=== PATIENT | male | born 1990 | race Caucasian/White ===

== ENCOUNTER 2017-05-04 18:15 | Emergency (ER) | payer BC, OTHER ==
[~2017-05-04] VITALS: Ht 177.8 cm; Wt 65.0 kg
[~2017-05-04 18:15] MED LIST: FISH300C2 PO; PRO AIR HFA INH; ZITH250T PO
[2017-05-04 19:08] VITALS: BP 120/80; PULSE 91; RESP 18; TEMP 98.1; O2SAT 99
[2017-05-04 21:05] LABS: AUTOMATED NEUTROPHIL # 7.3 TH/MM3 (1.8-7.7); BASOPHIL # 0.1 TH/MM3 (0-0.2); BASOPHIL % 0.7 % (0.0-2.0); EOSINOPHIL # 0.1 TH/MM3 (0-0.4); EOSINOPHIL % 1.1 % (0.0-4.0); HEMATOCRIT 42.4 % (39.0-51.0); HEMO FLAGS DIFF FINAL; LYMPH % 18.5 % (9.0-44.0); LYMPHOCYTE # 1.9 TH/MM3 (1.0-4.8); MEAN CELL VOLUME 96.2 FL (80.0-100.0); MEAN CORPUSCULAR HEMOGLOBIN 32.3 PG (27.0-34.0); MEAN CORPUSCULAR HGB CONC 33.5 % (32.0-36.0); MONO % 8.3 % (0.0-8.0); NEUT % 71.4 % (16.0-70.0); PLATELET COUNT 297 TH/MM3 (150-450); RED CELL DISTRIBUTION WIDTH 13.2 % (11.6-17.2); WHITE BLOOD COUNT 10.3 TH/MM3 (4.0-11.0)
[2017-05-04] MEDS ORDERED: IBUPROFEN 600 MG TAB PO ONE (21:15)
[2017-05-04 21:18] LABS: ANION GAP 7 MEQ/L (5-15); AST (GOT) 33 U/L (15-37); BICARBONATE 25.9 MEQ/L (21.0-32.0); BLOOD UREA NITROGEN 23 MG/DL (7-18); CHLORIDE 106 MEQ/L (98-107); GLOMERULAR FILTRATION RATE 81 ML/MIN (>89); POTASSIUM 3.6 MEQ/L (3.5-5.1); SODIUM (NA) 139 MEQ/L (136-145)
[2017-05-04 21:19] LABS: ALT (GPT) 42 U/L (12-78)
[2017-05-04 21:21] LABS: ALKALINE PHOSPHATASE 58 U/L (45-117); TOTAL BILIRUBIN ADULT 1.7 MG/DL (0.2-1.0)
[2017-05-04] MEDS ORDERED: TETANUS/DIPHTHERIA TOXOID ADULT 0.5 ML VIAL IM ONE (21:45)
[2017-05-04] MEDS ORDERED: diphenhydrAMINE HCL 50 MG CAP PO ONE (21:45)
--- NOTE | 2017-05-04 21:45 | PD ---
HPI Chief Complaint: Psychiatric Symptoms Time Seen by Provider: 21:41 Travel History International Travel<30 days: No Contact w/Intl Traveler<30days: No Traveled to known affect area: No History of Present Illness HPI 26-year-old male presents to the ED under Akins act for psychiatric evaluation. According to the Akins act the patient's parents are concerned that the patient is not caring for himself. They're concerned that he is using methamphetamines. On presentation the patient endorses methamphetamine use. He states that he has not slept for 6 nights. He denies suicidal or homicidal ideation. He denies psychiatric history. He denies somatic complaints. PFSH Past Medical History ADHD: Yes Asthma: Yes Anxiety: Yes Cancer: No Diabetes: No Diminished Hearing: No Psychiatric: No Migraines: No Seizures: No Thyroid Disease: No Ulcer: No Tetanus Vaccination: < 5 Years Influenza Vaccination: No Past Surgical History Abdominal Surgery: Yes (HERNIA REPAIR) Appendectomy: No Cholecystectomy: No Other Surgery: Yes (RECONSTRUCTIVE SURGERY ON LEFT SIDE OF FACE) Social History Alcohol Use: No Tobacco Use: Yes Substance Use: Yes (MARIJUANA/METH) Allergies-Medications (Allergen,Severity, Reaction): Coded Allergies: prednisolone (Unverified Allergy, Severe, 05/04/17) Uncoded Allergies: PRELONE (Allergy, Mild, 09/03/08) Reported Meds & Prescriptions Reported Meds & Active Scripts Active No Active Prescriptions or Reported Medications Review of Systems Except as stated in HPI: all other systems reviewed are Neg Physical Exam Narrative GENERAL: Well-nourished, well-developed white male in no acute distress. SKIN: Focused skin assessment warm/dry. Multiple small healing wounds in various stages of healing without signs of infection. HEAD: Normocephalic. EYES: No scleral icterus. No injection or drainage. NECK: Supple, trachea midline. No JVD or lymphadenopathy. CARDIOVASCULAR: Regular rate and rhythm without murmurs, gallops, or rubs. RESPIRATORY: Breath sounds equal bilaterally. No accessory muscle use. GASTROINTESTINAL: Abdomen soft, non-tender, nondistended. MUSCULOSKELETAL: No cyanosis, or edema. BACK: Nontender without obvious deformity. No CVA tenderness. Data Data Last Documented VS Vital Signs Date Time Temp Pulse Resp B/P (MAP) Pulse Ox O2 Delivery O2 Flow Rate FiO2 05/04/17 19:08 98.1 91 18 120/80 (93) 99 Orders Orders Psych Screen (05/04/17 20:03) Complete Blood Count With Diff (05/04/17 20:03) Comprehensive Metabolic Panel (05/04/17 20:03) Drug Screen, Random Urine (05/04/17 20:03) Ibuprofen (Motrin) (05/04/17 21:15) Tetanus/Diphtheria Tox Adult (Tetanus/Di (05/04/17 21:45) Diphenhydramine (Benadryl) (05/04/17 21:45) Labs Laboratory Tests Test 05/04/17 20:00 White Blood Count 10.3 TH/MM3 Red Blood Count 4.40 MIL/MM3 Hemoglobin 14.2 GM/DL Hematocrit 42.4 % Mean Corpuscular Volume 96.2 FL Mean Corpuscular Hemoglobin 32.3 PG Mean Corpuscular Hemoglobin Concent 33.5 % Red Cell Distribution Width 13.2 % Platelet Count 297 TH/MM3 Mean Platelet Volume 8.4 FL Neutrophils (%) (Auto) 71.4 % Lymphocytes (%) (Auto) 18.5 % Monocytes (%) (Auto) 8.3 % Eosinophils (%) (Auto) 1.1 % Basophils (%) (Auto) 0.7 % Neutrophils # (Auto) 7.3 TH/MM3 Lymphocytes # (Auto) 1.9 TH/MM3 Monocytes # (Auto) 0.8 TH/MM3 Eosinophils # (Auto) 0.1 TH/MM3 Basophils # (Auto) 0.1 TH/MM3 CBC Comment DIFF FINAL Differential Comment Blood Urea Nitrogen 23 MG/DL Creatinine 1.12 MG/DL Random Glucose 103 MG/DL Total Protein 7.5 GM/DL Albumin 3.9 GM/DL Calcium Level 8.6 MG/DL Alkaline Phosphatase 58 U/L Aspartate Amino Transf (AST/SGOT) 33 U/L Alanine Aminotransferase (ALT/SGPT) 42 U/L Total Bilirubin 1.7 MG/DL Sodium Level 139 MEQ/L Potassium Level 3.6 MEQ/L Chloride Level 106 MEQ/L Carbon Dioxide Level 25.9 MEQ/L Anion Gap 7 MEQ/L Estimat Glomerular Filtration Rate 81 ML/MIN MDM Medical Decision Making Medical Screen Exam Complete: Yes Emergency Medical Condition: Yes Differential Diagnosis Adjustment disorder versus anxiety versus bipolar versus depression versus dementia versus electrolyte disorder versus malingering versus mood disorder versus ODD versus psychosis versus PTSD versus schizophrenia versus schizoaffective disorder versus substance-induced mood disorder versus other Narrative Course 26-year-old male presents to the ED under Akins act for psychiatric evaluation. According to the Akins act the patient's parents are concerned that he is using methamphetamines and unable to care for himself. On presentation the patient does endorse not methamphetamine use. He denies suicidal or homicidal ideation. He has no somatic complaints. Physical exam is unremarkable. Lab work is without concerning abnormalities. Patient is medically cleared for psychiatric evaluation. Diagnosis Primary Impression: Medical clearance for psychiatric admission Scripts No Active Prescriptions or Reported Meds Jazmine Ricketts May 04, 2017 21:45
[2017-05-05 06:18] VITALS: BP 112/57; PULSE 77; RESP 18; TEMP 98.2; O2SAT 98
[2017-05-05 10:57] VITALS: BP 127/61; PULSE 79; RESP 18; O2SAT 100
--- NOTE | 2017-05-05 14:12 | PD ---
History of Present Illness Chief Complaint: Psychiatric Symptoms Time Seen by Provider: 13:55 Travel History International Travel<30 Days: No Contact w/Intl Traveler<30days: No Known affected area: No Legal Status Legal Status: Akins Act Akins Act Signed By: Isis Chatman History of Present Illness: History of Present Illness HPI 26-year-old male with no reported psychiatric history who presents to the ED under Akins act initiated by law enforcement . The Akins act alleges that according to the patient's father he has not slept in 6 days, that he has been exhibiting very erratic behavior and does not appear to be able to take care of himself. The patient endorses methamphetamine use but denies that he has been without sleep for 6 days or taking care of himself. He was monitored in secure environment and he presented no behavioral concerns and no suicidality. Electronic medical record is reviewed. One previous contact with [facility] when the patient was 17 years old. Current toxicology is positive for amphetamines as well as cannabinoids. Patient is seen. He is alert, oriented male who is calm and cooperative with evaluation. His speech is clear, logical, coherent. There is no evidence of any psychosis, no anthony or hypomania. He denies any suicidal or homicidal ideation, intent or plan. He admits to use of amphetamine although he minimizes his use and states that it's on an irregular basis. He also states that he has been taking care of himself and that he works, pays his own bills, and that he does not feel he needs to be admitted for any kind of treatment. He has contacted his sister and plans on moving back to [place] with her. [facility] Past Medical History ADHD: Yes Asthma: Yes Anxiety: Yes Cancer: No Diabetes: No Diminished Hearing: No Psychiatric: No Migraines: No Seizures: No Thyroid Disease: No Ulcer: No Tetanus Vaccination: < 5 Years Influenza Vaccination: No Past Surgical History Abdominal Surgery: Yes (HERNIA REPAIR) Appendectomy: No Cholecystectomy: No Other Surgery: Yes (RECONSTRUCTIVE SURGERY ON LEFT SIDE OF FACE) Psychiatric History Psychiatric History Hx Psychiatric Treatment: PATIENT WAS LAST ADMITTED TO [facility] FROM 09/04/08 TO 09/06/08 FOR DD NOS at the age of [age] years old. No current psychiatric tretametn. . History of Inpatient Treatment: Yes Guns or firearms in home: No Social History Single male. Has completed high school. Current living with his father. 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 Moved to the area from [place] 3 weeks ago. Hx Alcohol Use: No Hx Tobacco Use: Yes Hx Substance Use: Yes Substance Use Type: Marijuana, Amphetamines-Stimulants Hx of Substance Use Treatment: No Allergies-Medications (Allergen,Severity, Reaction): Coded Allergies: prednisolone (Unverified Allergy, Severe, 05/04/17) Uncoded Allergies: PRELONE (Allergy, Mild, 09/03/08) Reported Meds & Prescriptions Reported Meds & Active Scripts Active No Active Prescriptions or Reported Medications Review of Systems Except as stated in HPI: all other systems reviewed are Neg Mental Status Examination Appearance: Appropriate Consciousness: Alert Orientation: x4 Motor Activity: Normal gait Speech: Unremarkable Language: Adequate Fund of Knowledge: Adequate Attention and Concentration: Adequate Memory: Unremarkable Mood: Appropriate Affect: Appropriate Thought Process & Associations: Intact, Logical, Goal directed Thought Content: Appropriate Hallucination Type: None Delusion Type: None Suicidal Ideation: No Suicidal Plan: No Suicidal Intention: No Homicidal Ideation: No Homicidal Plan: No Homicidal Intention: No Insight: Fair Judgment: Adequate [facility] Medical Decision Making Medical Record Reviewed: Yes Assessment/Plan 26-year-old male with no reported psychiatric history who presents to the ED under Akins act initiated by law enforcement . The Akins act alleges that according to the patient's father he has not slept in 6 days. That he has been exhibiting very erratic behavior and does not appear to be able to take care of himself. The patient endorses methamphetamine use but denies that he hasn't not been sleeping or taking care of himself. He was monitored in secure environment and he presented no behavioral concerns and no suicidality. Patient at this time is requesting to be discharge from the hospital. He presents no psychosis, no suicidal or homicidal ideation, intent or plan. No evidence of unstable mental illness as defined under the Akins act. He is planning on moving back with his sister to [place]. He is future oriented and states life is too good for me to do anything to myself. Also when you hurt yourself you also hurt her family and I will would not do that". The patient minimizes his use of substances and its not ready to address this issue. The Akins act is lifted. Psychiatrically clear for discharge from ED. Orders Orders Psych Screen (05/04/17 20:03) Complete Blood Count With Diff (05/04/17 20:03) Comprehensive Metabolic Panel (05/04/17 20:03) Drug Screen, Random Urine (05/04/17 20:03) Ibuprofen (Motrin) (05/04/17 21:15) Tetanus/Diphtheria Tox Adult (Tetanus/Di (05/04/17 21:45) Diphenhydramine (Benadryl) (05/04/17 21:45) Diet Regular Basic (05/05/17 Breakfast) Diet Regular Basic (05/05/17 Lunch) Results Vital Signs Date Time Temp Pulse Resp B/P (MAP) Pulse Ox O2 Delivery O2 Flow Rate FiO2 05/05/17 10:57 79 18 127/61 (83) 100 Room Air 05/05/17 06:18 98.2 77 18 112/57 (75) 98 Room Air 05/04/17 19:08 98.1 91 18 120/80 (93) 99 Laboratory Tests Test 05/04/17 20:00 05/05/17 05:45 White Blood Count 10.3 Red Blood Count 4.40 Hemoglobin 14.2 Hematocrit 42.4 Mean Corpuscular Volume 96.2 Mean Corpuscular Hemoglobin 32.3 Mean Corpuscular Hemoglobin Concent 33.5 Red Cell Distribution Width 13.2 Platelet Count 297 Mean Platelet Volume 8.4 Neutrophils (%) (Auto) 71.4 Lymphocytes (%) (Auto) 18.5 Monocytes (%) (Auto) 8.3 Eosinophils (%) (Auto) 1.1 Basophils (%) (Auto) 0.7 Neutrophils # (Auto) 7.3 Lymphocytes # (Auto) 1.9 Monocytes # (Auto) 0.8 Eosinophils # (Auto) 0.1 Basophils # (Auto) 0.1 CBC Comment DIFF FINAL Differential Comment Blood Urea Nitrogen 23 Creatinine 1.12 Random Glucose 103 Total Protein 7.5 Albumin 3.9 Calcium Level 8.6 Alkaline Phosphatase 58 Aspartate Amino Transf (AST/SGOT) 33 Alanine Aminotransferase (ALT/SGPT) 42 Total Bilirubin 1.7 Sodium Level 139 Potassium Level 3.6 Chloride Level 106 Carbon Dioxide Level 25.9 Anion Gap 7 Estimat Glomerular Filtration Rate 81 Urine Opiates Screen NEG Urine Barbiturates Screen NEG Urine Amphetamines Screen POS Urine Benzodiazepines Screen NEG Urine Cocaine Screen NEG Urine Cannabinoids Screen POS Diagnosis Primary Impression: Medical clearance for psychiatric admission Additional Impression: Amphetamine abuse Psychiatrically Cleared: Yes Med/ Other Pt Specific Info: No Meds Exist/No RX given Prescriptions No Active Prescriptions or Reported Meds Disposition: DISCHARGE HOME Condition: Stable Problem Qualifiers Nettie Krer May 05, 2017 14:12
[2017-05-05 14:36] VITALS: BP 127/61; PULSE 79; RESP 18; O2SAT 100
--- NOTE | 2017-05-05 14:50 | PD ---
Physical Exam Time Seen by Provider: 14:48 ITZ Chavira has evaluated the patient, lifted the Akins act after cleared the patient for discharge. Data Data Last Documented VS Vital Signs Date Time Temp Pulse Resp B/P (MAP) Pulse Ox O2 Delivery O2 Flow Rate FiO2 05/05/17 14:36 79 18 127/61 (83) 100 Room Air 05/05/17 06:18 98.2 Orders Orders Psych Screen (05/04/17 20:03) Complete Blood Count With Diff (05/04/17 20:03) Comprehensive Metabolic Panel (05/04/17 20:03) Drug Screen, Random Urine (05/04/17 20:03) Ibuprofen (Motrin) (05/04/17 21:15) Tetanus/Diphtheria Tox Adult (Tetanus/Di (05/04/17 21:45) Diphenhydramine (Benadryl) (05/04/17 21:45) Diet Regular Basic (05/05/17 Breakfast) Diet Regular Basic (05/05/17 Lunch) Ed Discharge Order (05/05/17 14:53) Labs Laboratory Tests Test 05/04/17 20:00 05/05/17 05:45 White Blood Count 10.3 TH/MM3 Red Blood Count 4.40 MIL/MM3 Hemoglobin 14.2 GM/DL Hematocrit 42.4 % Mean Corpuscular Volume 96.2 FL Mean Corpuscular Hemoglobin 32.3 PG Mean Corpuscular Hemoglobin Concent 33.5 % Red Cell Distribution Width 13.2 % Platelet Count 297 TH/MM3 Mean Platelet Volume 8.4 FL Neutrophils (%) (Auto) 71.4 % Lymphocytes (%) (Auto) 18.5 % Monocytes (%) (Auto) 8.3 % Eosinophils (%) (Auto) 1.1 % Basophils (%) (Auto) 0.7 % Neutrophils # (Auto) 7.3 TH/MM3 Lymphocytes # (Auto) 1.9 TH/MM3 Monocytes # (Auto) 0.8 TH/MM3 Eosinophils # (Auto) 0.1 TH/MM3 Basophils # (Auto) 0.1 TH/MM3 CBC Comment DIFF FINAL Differential Comment Blood Urea Nitrogen 23 MG/DL Creatinine 1.12 MG/DL Random Glucose 103 MG/DL Total Protein 7.5 GM/DL Albumin 3.9 GM/DL Calcium Level 8.6 MG/DL Alkaline Phosphatase 58 U/L Aspartate Amino Transf (AST/SGOT) 33 U/L Alanine Aminotransferase (ALT/SGPT) 42 U/L Total Bilirubin 1.7 MG/DL Sodium Level 139 MEQ/L Potassium Level 3.6 MEQ/L Chloride Level 106 MEQ/L Carbon Dioxide Level 25.9 MEQ/L Anion Gap 7 MEQ/L Estimat Glomerular Filtration Rate 81 ML/MIN Urine Opiates Screen NEG Urine Barbiturates Screen NEG Urine Amphetamines Screen POS Urine Benzodiazepines Screen NEG Urine Cocaine Screen NEG Urine Cannabinoids Screen POS MDM Supervised Visit with [facility]: No Narrative Course ITZ Sheffield has evaluated the patient, lifted the Akins act and cleared the patient for discharge. Patient is being discharged home with his sister. Patient contracts safety. Denies suicidal or homicidal ideations. Patient will be provided community resource packet to /[facility] for follow-up. Has friends and family for support. Patient was medically cleared by alternate provider prior to psych screening. Patient has been evaluated by psychiatry and and is now cleared for discharge. Diagnosis Primary Impression: Amphetamine abuse Referrals: [facility] (Out patient) [facility] Primary Care Physician Psychiatrist Laura [facility] Behavior[facility] Patient Instructions: General Instructions, Polysubstance Abuse (ED) Additional Instruction: Contract safety to your self and others Stop using drugs Follow-up with psychiatry Follow-up with primary care provider Follow-up with Ousmane Mccoy Return to the emergency department immediately with worsening of symptoms Med/Other Pt SpecificInfo: No Change to Meds, No Meds Exist/No RX given Scripts No Active Prescriptions or Reported Meds Disposition: 01 DISCHARGE HOME Condition: Stable Mary Kelly May 05, 2017 14:50
== END 2017-05-05 17:22 | disposition home or self-care (01) ==
LOC: NEDAMB 18:15 → NEPJ 05-05 17:22
DX: F15.10 Other stimulant abuse, uncomplicated (principal); Z72.0 Tobacco use
CPT/HCPCS: 80053; 80307; 85025; 99284; Q0163